=== PATIENT | male | born 1990 | race Caucasian/White ===

== ENCOUNTER 2018-03-16 12:33 | Emergency (ER) | payer OTHER ==
[~2018-03-16] VITALS: Ht 167.6 cm; Wt 63.5 kg
[2018-03-16] MEDS ORDERED: ZITHROMAX500 MG (13:41)
[2018-03-17] MEDS ORDERED: OSEL75CA PO (00:09)
[2018-03-17] MEDS ORDERED: LOPERAMIDE2 M1 PO (00:09)
[2018-03-17] MEDS ORDERED: DICY20TA PO (00:09)
[2018-03-17] MEDS ORDERED: PREVACID30 M1 PO (00:09)
== END 2018-03-17 00:07 | disposition home or self-care (01) ==
LOC: ER 12:33
DX: J11.1 Influenza due to unidentified influenza virus with other respiratory manifestations (principal); K29.70 Gastritis, unspecified, without bleeding; K52.9 Noninfective gastroenteritis and colitis, unspecified